=== PATIENT | female | born 2000 | race Caucasian/White ===

== ENCOUNTER 2020-11-20 17:40 | Emergency (ER) | payer OTHER ==
[~2020-11-20 17:40] MED LIST: COLACE 100MG C100 MG PO; COLACE100 MG PO; IRON325 M1 PO; PRENATAL VITAM1 EAC5 PO
[2020-11-20 19:08] LABS: HEMOGLOBIN 12.4 gm/dl (12.3-15.3); RED BLOOD COUNT 4.02 M/UL (4.00-5.10); WHITE BLOOD COUNT 7.7 K/UL (4.5-11.0)
[2020-11-20 19:28] LABS: BUN/CREATININE RATIO 18 (0-10)
[2020-11-20] MEDS ORDERED: VENTOLIN HFA 66.7 GM INH (21:35)
[2020-11-20] MEDS ORDERED: ZOFRAN ODT 4 MG4 MG PO (21:35)
[2020-11-20] MEDS ORDERED: LODINE CAP 300300 MG PO (21:35)
== END 2020-11-20 21:40 | disposition home or self-care (01) ==
LOC: ER1 17:40
PROVIDERS: Physician Assistant
DX: J06.9 Acute upper respiratory infection, unspecified (principal); F17.210 Nicotine dependence, cigarettes, uncomplicated; Z20.822 Contact with and (suspected) exposure to COVID-19
CPT/HCPCS: 0240U; 71045; 80053; 84703; 85025; 85379; 85610; 85730; 87081; 87880; 99283